=== PATIENT | male | born 1980 | race Caucasian/White ===

== ENCOUNTER → 2022-12-10 11:00 | Outpatient (BNVA) | payer OTHER, SELFPAY | PROVIDERS: Family Provider Family Medicine; PCP Family Medicine; Referring Provider Family Medicine; Visit Provider Surgery | DX: Z12.11 Encounter for screening for malignant neoplasm of colon (principal) | CPT/HCPCS: 99202 ==

== ENCOUNTER 2023-02-15 20:00 | Outpatient (CLI) | payer OTHER, SELFPAY | END 2023-02-15 20:01 | disposition home or self-care (01) | LOC: SLEEP 02-16 04:24 | PROVIDERS: Family Provider Family Medicine; PCP Family Medicine; Visit Provider Family Medicine | DX: R06.83 Snoring (principal); R53.83 Other fatigue | CPT/HCPCS: 95810 ==

== ENCOUNTER 2024-08-15 12:54 | Emergency (ER) | payer OTHER, SELFPAY ==
[2024-08-15 13:01] VITALS: BP 138/95; PULSE 109; RESP 18; TEMP 36.6; O2SAT 97; BMI 37.0
--- NOTE | 2024-08-15 13:02 | XR_ITS ---
WS: [id number] XR ribs LT mn 3V w CXR1V [id number] REASON FOR EXAM: fall/injury FINDINGS: Moderately displaced left anterolateral seventh rib fracture. Possible nondisplaced anterolateral left eighth rib fracture. No pneumothorax or subcutaneous emphysema. No lung or pleural abnormality. XR/XR ribs LT mn 3V w CXR1V [id number] IMPRESSION: Left rib fractures as above.
--- NOTE | 2024-08-15 13:08 | W.ED.FALL ---
HPI - Fall General: Chief Complaint: General Medical Stated Complaint: fell hit left rib area Time Seen by Provider: 08/15/24 13:07 Source: patient Mode of arrival: ambulatory Limitations: no limitations History of Present Illness: Patient is a 44-year-old male who presents to the emergency department with his significant other for concerns of a left rib injury that he sustained just prior to arrival. Patient states he was getting down from his excavator when he accidentally tripped and landed onto a trailer to his left ribs. Patient states he felt pain immediately. He has had multiple cracked ribs before on the right side and feels like his symptoms feel similar. He is not complaining of shortness of breath but does have pain with deep inhalation. He is not having any abdominal pain. Denies any other injuries or complaints at this time. MD complaint: fall Onset (ago): hour(s) Fall from: standing Fall witnessed: no Place fall occurred: other (outdoors) Loss of consciousness: None Prolonged down time: no Symptoms prior to fall: none Context: tripped/slipped Location of injury: chest Severity: moderate Associated symptoms-after fall: Reports no associated symptoms and chest pain (L rib pain); Denies abdominal pain, headache(s), hematuria, lightheadedness or neck pain Related Data Home Medications ?Medication ?Instructions ?Recorded ?Confirmed allopurinol 100 mg tablet 100 mg PO TID 12/10/22 12/10/22 bupropion HCl 300 mg 24 hr tablet, 300 mg PO QAM 12/10/22 12/10/22 extended release cholecalciferol (vitamin D3) 25 25 mcg PO DAILY 12/10/22 12/10/22 mcg (1,000 unit) capsule colchicine 0.6 mg capsule 0.6 mg PO .3 tabs daily 12/10/22 12/10/22 divalproex 500 mg tablet,delayed 500 mg PO ONCE 12/10/22 12/10/22 release meloxicam 7.5 mg tablet 7.5 mg PO DAILY PRN 12/10/22 12/10/22 montelukast 10 mg tablet 10 mg PO DAILY 12/10/22 12/10/22 omeprazole 10 mg capsule,delayed 10 mg PO DAILY 12/10/22 12/10/22 release rosuvastatin 5 mg tablet 5 mg PO DAILY 12/10/22 12/10/22 Allergies Allergy/AdvReac Type Severity Reaction Status Date / Time No Known Allergies Allergy Unverified 12/10/22 11:10 Review of Systems Const: Denies: fever(s) Card: Reports: chest pain (L rib pain); Denies: palpitations, lightheadedness, syncope or pre-syncope Resp: Denies: dyspnea GI: Denies: abdominal pain or nausea : Denies: flank pain or hematuria Musc: Denies: neck pain, back pain, extremity pain or joint pain Neuro: Denies: headache(s) PFSH ED PFSH: Family History Grandmother Cancer colon Brother Cancer Lymphoma Grandfather Dementia Social History Smoking and tobacco/nicotine status: former use of tobacco/nicotine Alcohol intake: current Alcohol intake frequency: holidays/special occasions only Physical Exam Const: COMMON NORMALS: no acute distress, patient oriented x3, no limitations, alert and well nourished GENERAL APPEARANCE: cooperative NUTRITIONAL APPEARANCE: overweight (BMI 37) ORIENTATION/CONSCIOUSNESS: Yes awake, Yes oriented to person, Yes oriented to place and Yes oriented to time HENMT: COMMON NORMALS: normocephalic and atraumatic HEAD & SCALP: normal to inspection, normocephalic and atraumatic Neck/C-Spine: CERVICAL SPINE: Yes cervical ROM normal Chest: COMMONS NORMALS: normal inspection of the chest OTHER: TTP L lower anterior ribs; no crepitus; lung sounds normal; no pain to LUQ abdomen Resp: COMMON NORMALS: normal respiratory effort and clear to auscultation bilaterally AUSCULTATION: clear to auscultation bilaterally Cardio: COMMON NORMALS: regular rate and regular rhythm RATE: regular rate RHYTHM: regular rhythm GI: COMMON NORMALS: Normal to inspection, nondistended, normoactive bowel sounds present, Soft to palpation, non-tender, No hepatosplenomegaly present and no masses PALPATION: Yes Soft to palpation and Yes No hepatosplenomegaly present : COMMON NORMALS: Yes no CVA tenderness BLADDER/KIDNEY EXAM: Yes no CVA tenderness Back/Pelvis: COMMON NORMALS: no CVA tenderness, thoracic and lumbar spine normal to inspection and no thoracic nor lumbar tenderness Extremity: GENERAL: Yes normal exam except as noted Neuro: COMMON NORMALS: patient oriented x3 SENSORIUM/ORIENTATION: Yes alert, Yes oriented to person, Yes oriented to place and Yes oriented to time Skin: NARRATIVE SKIN EXAM: no abrasions/ecchymosis Course Vital Signs: Vital signs: Vital Signs Temperature 97.8 F 08/15/24 13:01 Pulse Rate 109 H 08/15/24 13:01 Respiratory Rate 18 08/15/24 13:01 Blood Pressure 138/95 08/15/24 13:01 Pulse Oximetry 97 08/15/24 13:01 MDM - Fall Medical Decision Making Patient with a left seventh and possible left eighth rib fracture. He was offered pain medications but declines. He feels comfortable taking [id number] analgesics. He does have trazodone he can use to help him sleep. Return to ED precautions discussed regarding worsening shortness of breath or chest pain or onset of abdominal pain. Medical Records I reviewed the patient's medical records. Lab Data Radiology Impressions Ribs X-Ray 08/15/24 13:02 IMPRESSION: Left rib fractures as above. All radiology interpretation(s) finalized by discharge Discharge Plan Discharge Patient Disposition: Home Clinical Impression: Fracture of left seventh rib, Fracture of left eighth rib Condition: Stable Prescriptions: No Action bupropion HCl 300 mg tablet extended release 24 hr 300 mg PO QAM omeprazole 10 mg capsule,delayed release(DR/EC) 10 mg PO DAILY allopurinol 100 mg tablet 100 mg PO TID cholecalciferol (vitamin D3) 25 mcg (1,000 unit) capsule 25 mcg PO DAILY divalproex 500 mg tablet,delayed release (DR/EC) 500 mg PO ONCE rosuvastatin 5 mg tablet 5 mg PO DAILY meloxicam 7.5 mg tablet 7.5 mg PO DAILY PRN colchicine 0.6 mg capsule 0.6 mg PO .3 tabs daily montelukast 10 mg tablet 10 mg PO DAILY Discharge Orders: Discharge ED (Routine); Ordered 08/15/24 Ordered By: Yvrose Cooper Referrals: Lula Bassett MD [Primary Care Provider, Family Practice] Patient Instructions: Rib Fracture (ED), Fractures - Rib Activity Restrictions/Additional Instructions: As we discussed, you were offered prescription pain medication but declined. You may take [id number] Ibuprofen and/or Tylenol as needed for discomfort. You may use your trazodone to help with sleep. Make sure you are taking frequent deep breaths throughout the day even though this may be comfortable. As we discussed, you need to return to the emergency department for worsening pain, abdominal pain, lightheadedness/dizziness/passing out episodes, shortness of breath or difficulty breathing, or any other concerns you may have. Print Language: Chinese Coding Level of Care Code ED Human Resources Operations Director for [facility]
[2024-08-15 14:12] VITALS: BP 129/83; PULSE 95; O2SAT 97
== END 2024-08-15 14:13 | disposition home or self-care (01) ==
PROVIDERS: Emergency Provider Physician Assistant; PCP Family Medicine
DX: S22.42XA Multiple fractures of ribs, left side, initial encounter for closed fracture (principal); Z87.891 Personal history of nicotine dependence; W01.198A Fall on same level from slipping, tripping and stumbling with subsequent striking against other object, initial encounter
CPT/HCPCS: 71101; 99283

== ENCOUNTER → 2024-10-09 08:28 | Outpatient (BNVA) | payer OTHER, SELFPAY | PROVIDERS: PCP Family Medicine; Visit Provider Surgery | DX: Z12.11 Encounter for screening for malignant neoplasm of colon (principal) | CPT/HCPCS: 99214 ==

== ENCOUNTER 2024-11-08 08:13 | Day surgery (SDC) | payer OTHER, SELFPAY ==
--- NOTE | 2024-11-08 08:17 | P.HPUD_ITS ---
Surgery/Procedure H&P Update DATE OF PROCEDURE: November 08, 2024 DATE H&P PERFORMED: 11/09/24 H&P UPDATE INFORMATION: I have reviewed H&P completed within last 30 days, I have examined patient prior to procedure, No changes to prior documentation, H&P is in [facility] EMR on date indicated and Risks and benefits of the procedure reviewed PLANNED PROCEDURE: Operation Date: 11/08/24 09:40 Proposed Procedures p Colonoscopy 78990 G0121 Z12.11(Not Applicable) - Juan Carlos Hanson MD
[2024-11-08 08:28] VITALS: BP 164/105; PULSE 89; RESP 18; TEMP 36.5; O2SAT 98; BMI 35.7
--- NOTE | 2024-11-08 08:36 | ANES.PREANE2 ---
Pre-Anesthetic Assessment Height/Weight: Height 1.78 m Weight 112.945 kg Temp Pulse Resp BP Pulse Ox O2 Del Method 97.7 F 89 18 164/105 98 Room Air 11/08/24 08:28 11/08/24 08:28 11/08/24 08:28 11/08/24 08:28 11/08/24 08:28 11/08/24 08:28 Operation Date: 11/08/24 09:40 Proposed Procedures p Colonoscopy [id number] G0121 Z12.11(Not Applicable) - Juan Carlos Hanson MD Familial anesthetic complications: Has PTSD. Wakes up violently Was Beta Lan taken within 24 hours: N/A Was Clonidine taken within 24 hours: N/A Last intake: Intake Last Liquid Date 11/07/24 Last Liquid Time 23:45 Last Solid Date 11/06/24 Last Solid Time 20:30 Social No alcohol and No tobacco Exam alert, oriented x 3, clear to auscultation bilaterally and regular rate & rhythm Airway Submandibular: within normal limits Cervical ROM: within normal limits Mallampati: Class III Dentition: full History/ROS No significant history except as noted and No significant complaints Pulmonary None reported CV/HEM None reported None reported Hepatic None reported GI Gastroesophageal Reflux Disease (No symptoms this morning. Controlled with meds) Metabolic Hyperlipidemia [facility] Fibromyalgia Neuropsych Anxiety and Depression Anesthetic Plan ASA status: 2 Anesthesia: Anesthesia Evaluation, General and MAC Risk of > 500 ml blood loss (7ml/kg in children): No Medications/Allergies Home Medications ?Medication ?Instructions ?Recorded ?Confirmed ?Last Taken ?Type allopurinol 100 mg tablet 100 mg PO TID 12/10/22 11/05/24 11/05/24 04:30 History bupropion HCl 300 mg 24 hr tablet, 300 mg PO QAM 12/10/22 11/05/24 11/05/24 04:30 History extended release cholecalciferol (vitamin D3) 25 25 mcg PO DAILY 12/10/22 11/05/24 11/05/24 04:30 History mcg (1,000 unit) capsule divalproex 500 mg tablet,delayed 500 mg PO BEDTIME 12/10/22 11/07/24 11/04/24 21:45 History release montelukast 10 mg tablet 10 mg PO DAILY 09/29/23 08/25/25 Unknown History (Singulair) omeprazole 10 mg capsule,delayed 10 mg PO DAILY 12/10/22 11/05/24 11/05/24 04:30 History release rosuvastatin 5 mg tablet 5 mg PO DAILY 12/10/22 11/05/24 11/05/24 04:30 History colchicine 0.6 mg capsule 0.6 mg PO .3 tabs daily PRN 10/09/24 11/05/24 Unknown History Abdominal Discomfort gabapentin 100 mg capsule 100 mg PO TID 10/09/24 11/05/24 11/05/24 04:30 History Allergies Allergy/AdvReac Type Severity Reaction Status Date / Time No Known Allergies Allergy Verified 11/05/24 08:23 Current Medications Generic Name Dose Route Start Last Admin Trade Name Freq PRN Reason Stop Dose Admin Sodium Chloride 1,000 mls @ 15 mls/hr 11/08/24 08:12 11/08/24 08:36 Sodium Chloride 0.9% IV 11/09/24 08:11 15 mls/hr .Q24H PRN Administration COLONOSCOPY FLUIDS PFSH Anesthesia Family History Grandmother Cancer colon Brother Cancer Lymphoma Grandfather Dementia Social History Smoking and tobacco/nicotine status: former use of tobacco/nicotine Alcohol intake: current Alcohol intake frequency: holidays/special occasions only
[2024-11-08 09:30] VITALS: BP 97/66; PULSE 82; RESP 14; TEMP 36.1; O2SAT 92
[2024-11-08 09:40] VITALS: BP 119/100; PULSE 73; RESP 16; O2SAT 90
--- NOTE | 2024-11-08 10:18 | ANE.PACU2 ---
Inpatient post-anesthesia follow up: Airway intact: Yes Vital signs: Temperature 97 F Pulse Rate 73 Respiratory Rate 16 Blood Pressure 119/100 Pulse Oximetry 90 Oxygen Delivery Me thod Nasal Cannula Oxygen Flow Rate Fraction of Inspir ed Oxygen Hydration adequate: Yes Nausea and vomiting: No Pain level: 1
== END 2024-11-08 10:18 | disposition home or self-care (01) ==
PROVIDERS: PCP Family Medicine; Visit Provider Surgery
PROC: 0DJD8ZZ Inspection of Lower Intestinal Tract, Via Natural or Artificial Opening Endoscopic (ICD-10-PCS; CPT 45378; principal; 2024-11-08 09:40)
DX: Z12.11 Encounter for screening for malignant neoplasm of colon (principal); D12.8 Benign neoplasm of rectum; K21.9 Gastro-esophageal reflux disease without esophagitis; E78.5 Hyperlipidemia, unspecified; M79.7 Fibromyalgia; F41.8 Other specified anxiety disorders; Z80.0 Family history of malignant neoplasm of digestive organs; Z87.891 Personal history of nicotine dependence
CPT/HCPCS: 45380; 88305; J2704; J7030

== ENCOUNTER → 2024-11-21 09:28 | Outpatient (BNVA) | payer OTHER, SELFPAY | PROVIDERS: PCP Family Medicine; Visit Provider Surgery | DX: Z09 Encounter for follow-up examination after completed treatment for conditions other than malignant neoplasm (principal); R03.0 Elevated blood-pressure reading, without diagnosis of hypertension | CPT/HCPCS: 99213 ==